=== PATIENT | male | born 1970 | race Caucasian/White ===

== ENCOUNTER → 2017-06-22 | Outpatient (CLI) | payer BC ==
[~2017-06-22] MED LIST: FLX10 PO
--- NOTE | 2017-06-22 16:04 | DIAGNOSTIC IMAGING REPORT ---
R KNEE 3 VIEWS HISTORY: 47 years-old Male KNEE PAIN, RIGHT chronic right knee pain without trauma COMPARISON: None available TECHNIQUE: 3 views of the right knee FINDINGS: No acute fracture, dislocation or significant degenerative changes. Small joint effusion suspected. Soft tissues are unremarkable without opaque foreign body. IMPRESSION: No acute fracture or significant degenerative changes. The above report was generated using voice recognition software. It may contain grammatical, syntax or spelling errors. Electronically signed by: Manjinder Camacho M.D. 06/22/2017 4:02 PM Dictated Date/Time: 06/22/2017 4:01 PM
== END | disposition home or self-care (01) ==
LOC: C.RADBC 15:31
PROVIDERS: ATTEND Internal Medicine
DX: M25.561 Pain in right knee (principal)

== ENCOUNTER → 2017-06-29 | Outpatient (CLI) | payer BC ==
--- NOTE | 2017-06-29 23:03 | DIAGNOSTIC IMAGING REPORT ---
R LOWER EXT JOINT WITHOUT CLINICAL HISTORY: 47 years-old Male with RT KNEE PAIN/EFFUSION. Chronic right knee pain for approximately 6 months. Concern for arthritis. No reported trauma. COMPARISON: Right knee radiographs 06/22/2017 TECHNIQUE: Multiplanar, multisequence MRI of the right knee was performed without intravenous contrast. FINDINGS: MENISCI: Horizontal undersurface tear of the posterior horn and posterior junction medial meniscus nicely seen on image 22 series 12 and also on image 20 series 10. No displaced fragment or parameniscal cyst identified. No extension into the meniscal root. The lateral meniscus appears sharp in contour and is intact without discrete tear identified. CRUCIATE LIGAMENTS: The anterior and posterior cruciate ligaments are normal in signal, morphology and course. Mild mucoid degeneration of both the ACL and PCL. COLLATERAL LIGAMENTS: The popliteus tendon, biceps femoris tendon, fibular collateral ligament and iliotibial band are intact. The superficial and deep components of the medial collateral ligament are intact. EXTENSOR MECHANISM: The quadriceps and patellar tendons are intact. The medial and lateral patellar retinacula are intact. KNEE JOINT: Trace joint effusion. No significant joint space narrowing or high-grade chondromalacia. No acute fracture or focal bone marrow edema. No intra-articular loose body. BONE MARROW: The bone marrow signal is age appropriate. No fracture, marrow edema, or marrow replacing process. SOFT TISSUES: The periarticular soft tissues are normal. IMPRESSION: 1. Horizontal undersurface tear of the posterior horn and posterior junction medial meniscus without displaced fragment or parameniscal cyst identified. 2. Trace joint effusion without significant degenerative changes or focal bone marrow edema. 3. No ligamentous or tendon tear identified. The above report was generated using voice recognition software. It may contain grammatical, syntax or spelling errors. Electronically signed by: Manjinder Camacho M.D. 06/29/2017 11:01 PM Dictated Date/Time: 06/29/2017 9:29 PM
== END | disposition home or self-care (01) ==
LOC: C.MRI 19:46
PROVIDERS: ATTEND Internal Medicine
DX: M25.561 Pain in right knee (principal); M25.461 Effusion, right knee